=== PATIENT | female | born 1975 | race Caucasian/White ===

== ENCOUNTER 2017-05-04 16:09 | Emergency (ER) | payer OTHER ==
[~2017-05-04] VITALS: Ht 162.6 cm; Wt 58.5 kg
[2017-05-04 16:16] VITALS: BP 106/66
--- NOTE | 2017-05-04 16:49 | RADIOLOGY REPORT ---
EXAMINATION: XR FINGER, LEFT CLINICAL INFORMATION: Left third finger injury COMPARISON: None TECHNIQUE: Three views of the left third finger.. FINDINGS: On the lateral view, there is a flexion deformity at the DIP joint but a discrete fracture is not identified. No additional findings. IMPRESSION: Mild flexion deformity at the DIP joint of the third digit. No fracture fragment is seen.
--- NOTE | 2017-05-04 16:56 | ED UPPER/LOWER EXTREMITY COMPL ---
History of Present Illness General Chief Complaint: Hand or Wrist Injury Stated Complaint: LEFT 3RD DIGIT INJURY, HIT BY SOCCER BALL Source: patient Exam Limitations: no limitations Vital Signs & Intake/Output Vital Signs & Intake/Output Vital Signs Date Time Temp Pulse Resp B/P B/P Pulse O2 O2 Flow FiO2 Mean Ox Delivery Rate 05/04 1616 98.5 88 15 106/66 99 Room Air Room Air Allergies Coded Allergies: Sulfa (Sulfonamide Antibiotics) (Severe, LIP SWELLING 05/04/17) Reconcile Medications Calcium Carbonate/Vitamin D3 (Calcium 500 + D Tablet) (Unknown Strength) TABLET (Unknown Dose) PO QAM SUPPLEMENT (Reported) Mesalamine (Delzicol) 400 MG CAPSULE.DR 2 TAB PO QAM ULCERATIVE COLITIS ( Reported) Mesalamine (Canasa) 1,000 MG SUPP.RECT 1 SUP RC PRN ULCERATIVE COLITIS ( Reported) Triage Note: PT TO ED FOR L THIRD FINGER PAIN S/P BEING HIT WITH SOCCER BALL. PER PT, +DEFORMITY. ABLE TO MOVE FINGER, +CMS. Triage Nurses Notes Reviewed? yes Onset: Abrupt Duration: constant Timing: single episode today Severity: moderate Severity Numbers: 5 : No Patient currently breastfeeds: No HPI: Patient is a 42-year-old female who presents to emergency room stating today that she was playing [employer] and a ball struck patient to the left third digit of her finger resulting every onset of pain where patient has been unable to fully extend the distal aspect of her digit. Skin is intact. No medications given prior to arrival. Patient is right arm dominant. (CARLOS POWER) Past History Travel History Traveled to [place] past 21 day No Medical History Any Pertinent Medical History? 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 No (CARLOS POWER) Review of Systems Review of Systems Constitutional: Reports: no symptoms. EENTM: Reports: no symptoms. Respiratory: Reports: no symptoms. Cardiovascular: Reports: no symptoms. Gastrointestinal/Abdominal: Reports: no symptoms. Genitourinary: Reports: no symptoms. Musculoskeletal: Reports: see HPI, joint pain. Skin: Reports: no symptoms. Neurological/Psychological: Reports: no symptoms. Hematologic/Endocrine: Reports: no symptoms. Immunological: Reports: no symptoms. All Other Systems: Reviewed and Negative (CARLOS POWER) Physical Exam Physical Exam General Appearance: no apparent distress, alert, comfortable Neurologic/Tendon: normal sensation, responds to pain, no evidence tendon injury , no pulse deficit Skin: intact, normal color, warm/dry Comments: Well-developed well-nourished no apparent distress. HEENT: Atraumatic, extraocular motion intact Neck: Supple, no lymphadenopathy Back: Nontender Respiratory: No respiratory distress Neuro: Alert and oriented x3 Psych: Mood affect normal, normal memory normal judgment. Diagram Hands Back 1) Noted mild tenderness skin intact patient unable to perform DIP extension Capillary refill less than 2 seconds dermatomes intact (CARLOS POWER) Progress Differential Diagnosis: arterial insufficiency, compartment syndrome, contusion, dislocation, DVT, fracture, gout, septic arthritis, sprain, tendon injury Plan of Care: Patient on initial examination shows concerns of mallet finger Patient was placed with a metal finger splint to the left hand pre-and post- neurovascular was intact. Patient was strongly advised to remain in the splint to improve healing and follow up with orthopedic doctor as instructed and discharged plan Diagnostic Imaging: Viewed by Me: Radiology Read. Radiology Impression: SEE COMMENTS Comments: PATIENT: VÍCTOR HARDEN PRESENT AGE: 42 PATIENT ACCOUNT NO: [id number] : 73 LOCATION: [facility] ORDERING PHYSICIAN: CARLOS NEIL SERVICE DATE: 05/04/17 EXAM TYPE: RAD - XRY-FINGERS, LEFT EXAMINATION: XR FINGER, LEFT CLINICAL INFORMATION: Left third finger injury COMPARISON: None TECHNIQUE: Three views of the left third finger.. FINDINGS: On the lateral view, there is a flexion deformity at the DIP joint but a discrete fracture is not identified. No additional findings. IMPRESSION: Mild flexion deformity at the DIP joint of the third digit. No fracture fragment is seen. DICTATED BY: ELISABETH EPSTEIN MD DATE/TIME DICTATED:05/04/171644 (CARLOS POWER) Departure Departure Disposition: HOME OR SELF CARE Condition: Stable Clinical Impression Primary Impression: Sprain of finger, left Secondary Impressions: Mallet finger of left hand Referrals: UNKNOWN (PCP/Family) DILAN BEVERLY MD Additional Instructions: As discussed the SPLINT THAT has been applied to YOU IN THE emergency room, leave this on at all times and to you follow up with the ORTHOPEDIC doctor. Please call tomorrow with orthopedic Dr. Beverly for further evaluation treatment. Begin icing the area directly 20 metastases every 2 hours and begin [id number] ibuprofen for pain and inflammation. If symptoms worsen return to emergency room Departure Forms: Customer Survey General Discharge Information (CARLOS POWER) PA/MACHINE II CUTTER Co-Sign Statement Statement: ED Attending supervision documentation- I saw and evaluated the patient. I have also reviewed all the pertinent lab results and diagnostic results. I agree with the findings and the plan of care as documented in the PA's/MACHINE II CUTTER's documentation. x I have reviewed the ED Record and agree with the PA's/MACHINE II CUTTER's documentation. [] Additions or exceptions (if any) to the PAs/MACHINE II CUTTER's note and plan are summarized below: [] (EMELY GARCIA,ADARSH)
[2017-05-04] MEDS ORDERED: DELZICOL400 M1 PO (16:57)
[2017-05-04] MEDS ORDERED: CANASA1000 M1 RC (16:57)
[2017-05-04] MEDS ORDERED: CALCIUM 500 +1 EAC5 PO (16:58)
== END 2017-05-04 17:22 ==
LOC: ERH 16:09
DX: S63.613A Unspecified sprain of left middle finger, initial encounter (principal); M20.012 Mallet finger of left finger(s); W21.02XA Struck by soccer ball, initial encounter; Y93.66 Activity, soccer; Y92.9 Unspecified place or not applicable
CPT/HCPCS: 73140-LT